=== PATIENT | female | born 1945 | race Caucasian/White ===

== ENCOUNTER 2019-04-15 11:00 | Outpatient (RCR) | payer MEDICARE, OTHER, SELFPAY ==
[2019-04-15 10:53] VITALS: BMI 29.7
== END 2019-06-23 23:59 | disposition home or self-care (01) ==
LOC: ANHDMC 11:00
PROVIDERS: PCP Family Medicine; Visit Provider Family Medicine
DX: E11.65 Type 2 diabetes mellitus with hyperglycemia (principal); Z71.3 Dietary counseling and surveillance; Z71.89 Other specified counseling
CPT/HCPCS: 97802; G0108

== ENCOUNTER 2019-05-27 07:44 | Outpatient (CLI) | payer MEDICARE, OTHER, SELFPAY ==
--- NOTE | 2019-06-18 15:07 | SLEEP_ITS ---
DATE OF STUDY: 05/27/2019 ORDERING PHYSICIAN: Romero Herring M.D. REASON FOR THIS STUDY: History of sleep apnea on CPAP, needs a retitration. HISTORY: This patient is a 74-year-old female, 62 inches tall, weighing 168 pounds with a body mass index of 30.7. She has used CPAP for over 20 years and says that it has changed her life. However, it is time for a retitration. She does frequently snore loudly that others complain about it when she is not wearing her CPAP. She frequently wakes up at night with heartburn belching. She does not have trouble sleeping with a cold, does not gasp for breath at night and does not have breathing problems at night witnessed by others. She does not sweat excessively at night. She occasionally falls asleep during the day rarely involuntarily, never while driving. She does not have loss of muscle tone with strong emotion, does not have daytime difficulties due to excessive sleepiness and does not feel paralyzed on waking or falling asleep. She is never afraid to go to sleep. She denies nightmares. She does not remember dreams. She frequently has racing thoughts. She never feels sad or depressed. She occasionally has anxiety. She constantly has muscular tension. She rarely notices parts of her body jerking. She does not kick at night, does not have crawly achy feelings in the legs or have leg pain at night. She constantly has morning jaw pain and constantly grinds her teeth. She frequently is bothered by pain during the day in her jaw. She is not awakened by pain during the night. She frequently wakes up feeling stiff in the morning with sore achy muscles, occasionally with pain in the neck and spine. She has fatigue and bowel disturbances. Bedtime is 08:30 p.m. falling asleep quickly, waking 2-4 times at night to go to the bathroom and sometimes to watch television. She wakes up in the morning between 04:00 and 5:00 a.m. Weekend schedule is the same. She does not take naps. A short nap is not refreshing. She feels better in the morning than at other times of day. PAST MEDICAL HISTORY: Diabetes, hypertension, and hypothyroidism. MEDICAL COMORBIDITIES: 1. TMJ arthropathy. 2. Obstructive sleep apnea syndrome with a study in 2006 showing an optimal pressure of 7 cm of water pressure. On November 21, 2008, she had a repeat CPAP titration showing at optimal pressure of 14 cm with correction of respiratory events. She did not have bruxism at that time. MEDICATIONS: Tradjenta, levothyroxine, glipizide, Bystolic, lisinopril, metformin, and Steglatro. HABITS: Never smoked tobacco. Coffee 1 cup in the morning. No alcohol. DESCRIPTION OF THE STUDY: On the [place] Sleepiness Scale, the score is 2. This was conducted as a full night CPAP titration using the [employer] multiple channel system including EOG, EEG, submental EMG, EKG, nasal and oral airflow using thermistors and nasal pressure sensors, chest and abdominal belts, body position data and pulse oximetry. The study was scored using [facility] guidelines. The duration of the study was 479.8 minutes. Sleep efficiency was 87.3%. Sleep latency was short at 0 minutes. REM latency was prolonged 253 minutes. There were 24 awakenings and the patient spent 12.7% of the study, 60.1 minutes awake after sleep onset. Sleep architecture showed 7.1% stage 1 sleep, 61.7% stage 2 sleep, no stage 3 sleep and 18.6% stage REM. The patient spent only 1.6% of the study supine. The remainder was non-supine. Sleep architecture was abnormal with 3 REM cycles in the last half of the night. The sleep was somewhat fragmented, especially in the first half with shifts between wake stage I and stage II. The apnea-hypopnea index was 1.4. The obstructive index was 1.3. Central index 0.1. Unfortunately, there was no supine REM. The patient
== END 2019-05-27 07:45 | disposition home or self-care (01) ==
LOC: ANHCSM 07:44
PROVIDERS: PCP Family Medicine; Visit Provider Family Medicine
DX: G47.33 Obstructive sleep apnea (adult) (pediatric) (principal)
CPT/HCPCS: 95811

== ENCOUNTER 2019-12-14 08:34 | Outpatient (CLI) | payer MEDICARE, OTHER, SELFPAY ==
--- NOTE | ~2019-12-14 | NM_ITS ---
EXAMINATION: NM octavio stress w perfusion DATE: 12/14/2019 13:12 CDT INDICATION: Chest pain TECHNIQUE: Rest images were obtained following intravenous administration of 9 mCi Tc99m tetrofosmin (Myoview). The patient was infused intravenously with Lexiscan (regadenoson). Then, 29 mCi Tc99m tetr ofosmin (Myoview) was administered intravenously, and stress images were obtained. Data was reconstru cted into short axis and horizontal and vertical long axis SPECT images. Gated SPECT images were also obtained. COMPARISON: None. FINDINGS: There is no definite reversible or fixed perfusion abnormality to suggest ischemia or infar ction. There is no segmental wall motion abnormality. Left ventricular ejection fraction measures 7 7%. IMPRESSION: 1. No definite ischemia or infarct. 2. Normal left ventricular ejection fraction measuring 77%. Reviewed, dictated and finalized at location A.
--- NOTE | 2019-12-14 08:40 | ECHO_ITS ---
Patient Info Name: Giovanna Hercules Age: 74 years : 1945 Gender: Female Ht: 64 in Wt: 162 lbs BSA: 1.84 m2 HR: 71 bpm BP: 195 / 88 mmHg Heart Rhythm: Sinus Rhythm Technical Quality: Good Exam Date: 12/14/2019 9:03 AM Exam Location: [facility] Patient Status: Outpatient Admit Date: 12/14/2019 Staff Ordering Physician: Ann Carolina Vehicle Body Builder: Félix Rdz RDCS Attending Provider: Ann Carolina Referring Physician: Caity PATEL; Exam Type: CA echo doppler color flow Study Info Indications R07.9 - Chest pain, unspecified Complete two-dimensional, color flow and Doppler transthoracic echocardiogram is performed. Strain analysis performed. History/Risk Factors Chest pain. Summary 1. Complete two-dimensional, color flow and Doppler transthoracic echocardiogram is performed. 2. Left ventricular chamber dimension is normal. 3. Ventricular septum is sigmoid shaped. No LVOT obstruction. 4. Left ventricular systolic function is hyperdynamic, estimated at >70%. 5. There is mildly increased left ventricular wall thickness. 6. The left ventricular diastolic function is grade I diastolic dysfunction. 7. E/e' 13 is mildly elevated. 8. Global longitudinal strain is normal at -17.4%. 9. There is mild aortic valve sclerosis. 10. No pulmonary hypertension, estimated pulmonary arterial systolic pressure is 32 mmHg. Left Ventricle Ventricular septum is sigmoid shaped. No LVOT obstruction. E/e' 13 is mildly elevated. Global longitudinal strain is normal at -17.4%. Left ventricular chamber dimension is normal. Left ventricular systolic function is hyperdynamic, estimated at >70%. There is mildly increased left ventricular wall thickness. The left ventricular diastolic function is grade I diastolic dysfunction. Right Ventricle Right ventricular chamber dimension is normal. Right ventricular systolic function is normal. Left Atria Left atrial chamber dimension is normal. Right Atria Right atrial chamber dimension is normal. Aortic Valve The aortic valve is trileaflet. There is mild aortic valve sclerosis. There is no aortic valve stenosis. There is no aortic valve regurgitation. Pulmonic Valve There is no pulmonic regurgitation. Mitral Valve There is no mitral valve stenosis. There is no mitral valve regurgitation. Tricuspid Valve There is no tricuspid valve regurgitation. No pulmonary hypertension, estimated pulmonary arterial systolic pressure is 32 mmHg. Pericardium/Pleural There is no pericardial effusion. Inferior Vena Cava Normal inferior vena cava with >50% collapse upon inspiration consistent with normal right atrial pressure, 5 mmHg. Aorta The aortic root size at the sinus of Valsalva is normal. Left Ventricular Outflow Tract Name Value Normal LVOT 2D LVOT Diameter 2.0 cm LVOT Doppler LVOT Peak Gradient 4 mmHg LVOT Mean Gradient 2 mmHg LVOT VTI 20 cm LVOT VTI/AV VTI Ratio 0.7 LVOT Stroke Volume
--- NOTE | 2019-12-14 08:40 | EST_ITS ---
Patient Info Name: Giovanna Hercules Age: 74 years : 1945 Gender: Female Ht: 64 in Wt: 162 lbs BSA: 1.84 m2 Exam Date: 12/14/2019 11:23 AM Exam Location: [facility] [place] Stress Patient Status: Outpatient Admit Date: 12/14/2019 Staff Ordering Physician: Ann Carolina Attending Provider: Ann Carolina Exercise Technologist: Faye Valdovinos RDCS Exercise Physician: Alvaro Simon DO Exam Type: CA stress octavio w NM Study Info Indications R07.9 - Chest pain, unspecified A regadenoson stress test was performed. Summary 1. 1. Negative lexiscan stress test for ischemic ST changes by ECG criteria. 2. 2. Baseline hypertension. 3. 3. Nuclear scan to follow and will be reported separately. Please correlat with it. 4. 4. Patient informed of the above results. Protocol: Lexiscan Stress ECG Details Stage: REST Duration (min): 5 min : 50 sec HR (bpm): 68 SBP (mmHg): --- DBP (mmHg): --- Stage: REST Duration (min): 7 min : 46 sec HR (bpm): 66 SBP (mmHg): 208 DBP (mmHg): 92 Stage: REST Duration (min): 21 min : 44 sec HR (bpm): 66 SBP (mmHg): 208 DBP (mmHg): 92 Stage: STAGE 1 Duration (min): 1 min : 0 sec HR (bpm): 79 SBP (mmHg): 203 DBP (mmHg): 107 Stage: RECOVERY Duration (min): 1 min : 0 sec HR (bpm): 81 SBP (mmHg): 167 DBP (mmHg): 82 Stage: RECOVERY Duration (min): 2 min : 0 sec HR (bpm): 74 SBP (mmHg): 167 DBP (mmHg): 82 Stage: RECOVERY Duration (min): 3 min : 0 sec HR (bpm): 71 SBP (mmHg): 168 DBP (mmHg): 82 Stage: RECOVERY Duration (min): 4 min : 0 sec HR (bpm): 76 SBP (mmHg): 168 DBP (mmHg): 82 Stage: RECOVERY Duration (min): 5 min : 0 sec HR (bpm): 78 SBP (mmHg): 169 DBP (mmHg): 86 Rest HR: 66 bpm Peak HR: 85 bpm Rest Sys BP: 208 mmHg Peak Sys BP: 203 mmHg Max Pred HR: 147 bpm % Max Pred HR: 58 % Target HR: 125 bpm Max RPP: 17,255 bpm*mmHg Termination Reason: Completed protocol Cardiac Symptoms: Shortness of breath, Headache Total Time: 1 min : 0 sec Rest Espinoza BP: 92 mmHg Peak Espinoza BP: 107 mmHg Total Dose: 0.4 mg Resting ECG Sinus rhythm, RBBB. Stress ECG No ST changes. Arrhythmias None. Report Signatures
== END 2019-12-14 08:35 | disposition home or self-care (01) ==
PROVIDERS: PCP Family Medicine; Visit Provider Physician Assistant Medical
DX: I45.10 Unspecified right bundle-branch block (principal); R07.9 Chest pain, unspecified
CPT/HCPCS: 78452; 93017; 93306; A9502; J2785

== ENCOUNTER 2019-12-15 09:32 | Outpatient (CLI) | payer MEDICARE, OTHER, SELFPAY ==
--- NOTE | ~2019-12-15 | MR_ITS ---
EXAMINATION: MR brain IAC wo/w con EXAM DATE: 12/15/2019 12:30 INDICATION: Amnesia. TECHNIQUE: Multi-sequential, multiplanar MR images of the brain, brainstem, internal auditory canals were obtained without contrast. Whole brain sagittal T1, axial diffusion, gradient echo (T2*), T1, T 2, FLAIR sequences obtained. High resolution coronal 3-D FIESTA, coronal T1 FSE, axial T1 FSPGR of t he internal auditory canals. Patient was then injected with Multihance contrast intravenously, quanti ty not available at this time. Postcontrast axial and coronal T1 weighted whole brain, axial and cor onal high resolution T1 IAC sequences obtained. There is no prior study for comparison. FINDINGS: No evidence of mastoid or middle ear opacification. The 7th/8th cranial nerve complexes a re symmetric, normal in course and caliber. No cerebellopontine angle masses. There is small to moderate size old right cerebellar infarction. Small old right occipital lobe infar ction. There are no areas of restricted diffusion to suggest acute infarction. There is no acute hem orrhage seen on the T2*, a hemosiderin sensitive sequence. No intraparenchymal brain mass lesion. Th ere is mild periventricular and subcortical T2/FLAIR signal hyperintensity, nonspecific but probably related to small vessel ischemic disease (microangiopathy). There is mild prominence of the sulci a nd ventricles related to cerebral atrophy. There are no extra-axial collections. Flow voids are se en in the cerebral arteries on the T2-weighted sequences consistent with their expected patency. Jennifer ient has had bilateral ocular lens surgery. Soft tissue is unremarkable. IMPRESSION: 1. 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 2. Chronic age related findings. Reviewed, dictated and finalized at location B. IMPRESSION: 1. Small to moderate old right cerebellar, small old right occipital lobe infa rctions. 2. Chronic age related findings.
[2019-12-15 11:40] LABS: Estimated Glomerular Filt Rate > 60
== END 2019-12-15 09:33 | disposition home or self-care (01) ==
LOC: ANHIMG 09:37
PROVIDERS: PCP Family Medicine; Visit Provider Physician Assistant Medical
DX: R41.3 Other amnesia (principal); Z86.73 Personal history of transient ischemic attack (TIA), and cerebral infarction without residual deficits
CPT/HCPCS: 70553; A9577

== ENCOUNTER 2020-02-25 11:34 | Outpatient (RCR) | payer MEDICARE, OTHER, SELFPAY | END 2020-02-25 13:46 | disposition home or self-care (01) | LOC: ANHDMC 11:34 | PROVIDERS: PCP Family Medicine; Visit Provider Family Medicine | DX: E11.65 Type 2 diabetes mellitus with hyperglycemia (principal); Z71.89 Other specified counseling | CPT/HCPCS: G0108 ==

== ENCOUNTER 2020-08-01 07:41 | Outpatient (CLI) | payer MEDICARE, OTHER, SELFPAY ==
--- NOTE | ~2020-08-01 | US_ITS ---
EXAMINATION: US art doppler w press LE BI DATE: 08/01/2020 08:56 INDICATION: Peripheral vascular disease. TECHNIQUE: Segmental pressures and plethysmographic and Doppler waveforms of the brachial and lower e xtremity arteries were obtained. COMPARISON: None. FINDINGS: Right and left brachial artery pressures of 161 mm Hg and 150 mm Hg, respectively, are concordant (no rmal difference <= 30 mmHg). The right and left high-thigh pressure were unable to be obtained due to inability to occlude the vessels above the ankles. This also precludes assessment for segmental pres sure gradients. The right ankle-brachial index (ARMIDA) is 1.12 (normal >= 0.9-1). The right great toe-brachial index (T BI) is 0.80 (normal >= 0.6-0.8). Arterial waveforms are biphasic with brisk systolic upstrokes throug hout. The left ARMIDA is 1.12. The left TBI is 0.74. Arterial waveforms are biphasic with brisk systolic upstr okes throughout. IMPRESSION: 1. Normal ARMIDA's and TBI's bilaterally. No significant occlusive disease. Reviewed, dictated and finalized at location A.
== END 2020-08-01 07:42 | disposition home or self-care (01) ==
PROVIDERS: PCP Family Medicine; Visit Provider Family Medicine
DX: I73.9 Peripheral vascular disease, unspecified (principal)
CPT/HCPCS: 93923

== ENCOUNTER 2020-08-24 07:30 | Outpatient (RCR) | payer MEDICARE, OTHER, SELFPAY ==
[2020-06-02 09:16] VITALS: PULSE 65
[2020-06-05 14:47] LABS: Glucose Point of Care 158 (65-105)
[2020-06-05 14:47] LABS: Glucose Point of Care 180 (65-105)
[2020-06-08 08:52] LABS: Glucose Point of Care 116 (65-105)
[2020-06-12 12:30] LABS: Glucose Point of Care 216 (65-105)
[2020-06-14 07:50] LABS: Glucose Point of Care 168 (65-105)
[2020-06-14 08:47] LABS: Glucose Point of Care 160 (65-105)
[2020-06-19 08:43] LABS: Glucose Point of Care 197 (65-105)
[2020-06-19 08:43] LABS: Glucose Point of Care 201 (65-105)
--- NOTE | 2020-06-26 11:20 | PCCPR ---
Absent WED 06/28 and 06/29-Family emergency OOT.
[2020-07-03 11:40] LABS: Glucose Point of Care 148 (65-105)
[2020-07-05 08:46] LABS: Glucose Point of Care 266 (65-105)
[2020-07-05 08:46] LABS: Glucose Point of Care 207 (65-105)
[2020-07-06 09:04] LABS: Glucose Point of Care 194 (65-105)
[2020-07-06 09:04] LABS: Glucose Point of Care 183 (65-105)
[2020-07-10 08:39] LABS: Glucose Point of Care 229 (65-105)
[2020-07-19 08:42] LABS: Glucose Point of Care 237 (65-105)
[2020-07-24 08:44] LABS: Glucose Point of Care 94 (65-105)
[2020-07-26 07:47] LABS: Glucose Point of Care 202 (65-105)
[2020-07-26 08:38] LABS: Glucose Point of Care 170 (65-105)
[2020-07-31 08:47] LABS: Glucose Point of Care 224 (65-105)
[2020-08-02 08:42] LABS: Glucose Point of Care 162 (65-105)
[2020-08-03 09:10] LABS: Glucose Point of Care 110 (65-105)
[2020-08-07 08:37] LABS: Glucose Point of Care 99 (65-105)
== END 2020-08-24 19:30 | disposition home or self-care (01) ==
LOC: ANHCPREHAB 07:30
PROVIDERS: PCP Family Medicine
DX: Z95.5 Presence of coronary angioplasty implant and graft (principal)
CPT/HCPCS: 82948; 93798

== ENCOUNTER 2020-11-07 14:01 | Outpatient (RCR) | payer MEDICARE, OTHER, SELFPAY | END 2021-01-22 11:37 | disposition home or self-care (01) | LOC: ANHDMC 14:01 | PROVIDERS: PCP Family Medicine; Visit Provider Internal Medicine Endocrinology, Diabetes & Metabolism | DX: E11.9 Type 2 diabetes mellitus without complications (principal); Z71.89 Other specified counseling | CPT/HCPCS: G0108 ==

== ENCOUNTER → 2021-03-12 09:46 | Outpatient (CLI) | payer MEDICARE, OTHER, SELFPAY ==
[2021-03-14 19:37] LABS: SARS-CoV-2 RNA PCR Positive
== END ==
PROVIDERS: PCP Family Medicine; Visit Provider Physician Assistant Medical
DX: U07.1 COVID-19 (principal)
CPT/HCPCS: C9803; U0003; U0005

== ENCOUNTER 2021-04-26 15:34 | Emergency (ER) | payer MEDICARE, OTHER, SELFPAY ==
--- NOTE | ~2021-04-26 | XR_ITS ---
EXAMINATION: XR forearm LT 2V EXAM DATE: 04/26/2021 16:48 INDICATION: Fell out of bed, mid forearm, wrist pain. TECHNIQUE: Left forearm frontal and lateral projections obtained and reviewed. There is no prior dimas dy for comparison. FINDINGS: There are no acute left forearm fractures or dislocations identified. There is no subcutan eous gas. The soft tissue is unremarkable. There are no radiopaque foreign bodies. IMPRESSION: 1. XR forearm LT 2V exam without acute osseous findings. Reviewed, dictated and finalized at location G. POLISHER
--- NOTE | ~2021-04-26 | XR_ITS ---
EXAMINATION: XR wrist LT min 3V EXAM DATE: 04/26/2021 15:53 INDICATION: Fall Off Bed 2 Days Ago. Bruising Post Hand, Pain Post wrist. TECHNIQUE: Left wrist frontal, frontal with ulnar deviation, oblique and lateral projections obtained and reviewed. There is no prior study for comparison. FINDINGS: Left wrist scapholunate joint space is maintained. There are no acute fractures or dislocat ions identified. There is no subcutaneous gas. The soft tissue is unremarkable. There are no radi opaque foreign bodies. IMPRESSION: No acute osseous findings. Reviewed, dictated and finalized at location G. APPLICATION ARCHITECT IMPRESSION: No acute osseous findings.
[2021-04-26 15:36] VITALS: BP 184/88; PULSE 88; RESP 20; TEMP 36.7; O2SAT 96
--- NOTE | 2021-04-26 16:32 | ED.GENADULT ---
HPI - General Adult General Chief complaint: Extremity Injury, Upper Stated complaint: fall 2 days prior, left arm pain Time Seen by Provider: 04/26/21 15:46 Source: patient Mode of arrival: ambulatory Limitations: no limitations History of Present Illness HPI narrative: Patient is a 76 yo female with CC of left wrist and forearm pain and bruising after rolling out of the bed on Friday. She reports the bed was less approx 1 ft off the ground and she did not hit her head or lose consciousness. She reports she put out her left arm to brace her fall. She denies any headache, or neurological changes. She reports swelling and bruising to the left wrist and thumb that decreases some of ROM. She also reports pain to proximal forearm. She reports she is on anticoagulant. Patient reports she was able to get herself up and was not laying on the floor for an extended period of time. Patient denies any other areas of injury or concern. Related Data Home Medications Medication Instructions Recorded Confirmed cholecalciferol (vitamin D3) 100 4,000 unit PO DAILY 03/29/19 12/05/20 mcg (4,000 unit) tablet ascorbic acid (vitamin C) 500 mg 500 mg PO DAILY 04/10/20 12/05/20 capsule aspirin 81 mg tablet,delayed 81 mg PO DAILY 05/04/20 12/05/20 release isosorbide mononitrate 30 mg 30 mg PO DAILY tablet 07/13/20 12/05/20 tablet,extended release 24 hr Allergies Allergy/AdvReac Type Severity Reaction Status Date / Time codeine Allergy Mild Vomiting Verified 04/26/21 15:41 Penicillins Allergy Mild rash Verified 04/26/21 15:41 cefuroxime Allergy Unknown Unknown Verified 04/26/21 15:41 Review of Systems Review of Systems: CONSTITUTIONAL: Denies fever, chills, or sweats. EYES: Denies visual changes, redness, or discharge. ENT: Denies rhinorrhea, congestion, sore throat, or otalgia. CARDIOVASCULAR: Denies chest pain, palpitations, or edema. RESPIRATORY: Denies cough or dyspnea. GASTROINTESTINAL: Denies abdominal pain, nausea, vomiting, or diarrhea. GENITOURINARY: Denies dysuria or hematuria. SKIN: Denies rash or itching. MUSCULOSKELETAL: Reports left arm pain denies back pain, joint pain, or myalgia. NEUROLOGIC: Denies headache, numbness, dizziness, or weakness. PSYCHIATRIC: Denies anxiety or depression. [facility] Past Medical History Medical History Anemia Bilateral claudication of lower limb BMI 28.0-28.9,adult BMI 29.0-29.9,adult BMI 30.0-30.9,adult BMI 31.0-31.9,adult Cancer Cataract Chest pain Diabetes mellitus H/O: HTN (hypertension) Liver disease Stroke Thyroid disease Transplanted kidney removed Surgical History Surgical History H/O cardiac catheterization H/O: hysterectomy Hx of heart artery stent Family History Family History Grandparent Family history of coronary artery disease Acute myocardial infarction Mother Family history of malignant neoplasm of breast in first degree relative Father , shot in back. No problems noted. Sibling Pacemaker Social History Social History Second hand tobacco smoke exposure: Yes Alcohol intake: never Substance use: never Substance use type: does not use Additional living arrangements comments: She lives with her Eb. 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 HEAD: Normocephalic, atraumatic. No hematomas, lacerations, abrasions or areas of injury. EYES: PERRLA and EOMI. ENT: Nares clear, no rhinorrhea or epistaxis. Mucous membranes moist. Oropharynx without tonsillar hypertrophy exudate or other lesions.
[2021-04-26 17:35] VITALS: BP 152/79; PULSE 68; RESP 18; O2SAT 99
== END 2021-04-26 17:39 | disposition home or self-care (01) ==
PROVIDERS: Emergency Provider Emergency Medicine; PCP Family Medicine
DX: S63.502A Unspecified sprain of left wrist, initial encounter (principal); S66.912A Strain of unspecified muscle, fascia and tendon at wrist and hand level, left hand, initial encounter; S60.212A Contusion of left wrist, initial encounter; E11.9 Type 2 diabetes mellitus without complications; I10 Essential (primary) hypertension; E07.9 Disorder of thyroid, unspecified; K76.9 Liver disease, unspecified; Z86.73 Personal history of transient ischemic attack (TIA), and cerebral infarction without residual deficits; Z86.2 Personal history of diseases of the blood and blood-forming organs and certain disorders involving the immune mechanism; Z79.82 Long term (current) use of aspirin; Z95.5 Presence of coronary angioplasty implant and graft; H26.9 Unspecified cataract; Z77.22 Contact with and (suspected) exposure to environmental tobacco smoke (acute) (chronic); Z79.84 Long term (current) use of oral hypoglycemic drugs; Z79.4 Long term (current) use of insulin; Z79.02 Long term (current) use of antithrombotics/antiplatelets; W06.XXXA Fall from bed, initial encounter
CPT/HCPCS: 73090; 73110; 99283

== ENCOUNTER 2022-02-25 09:15 | Outpatient (RCR) | payer MEDICARE, OTHER, SELFPAY ==
[2022-02-12 10:47] VITALS: BMI 32.4
[2022-02-12 10:48] VITALS: BMI 32.4
== END 2022-02-25 14:53 | disposition home or self-care (01) ==
LOC: ANHDMC 09:15
PROVIDERS: PCP Family Medicine; Visit Provider Nurse Practitioner Family
DX: E11.9 Type 2 diabetes mellitus without complications (principal); Z71.3 Dietary counseling and surveillance; Z71.89 Other specified counseling
CPT/HCPCS: 97802; G0108

== ENCOUNTER 2024-01-09 12:12 | Emergency (ER) | payer MEDICARE, OTHER, SELFPAY ==
--- NOTE | ~2024-01-09 | XR_ITS ---
[id number] 01/09/2024 13:09 Indication: Left medial knee pain Procedure: 2 views left knee Comparison: No prior studies for comparison. Findings: There is mild patellofemoral compartment osteoarthritis. No fracture, subluxation or joint effusion. No foreign bodies. Impression: 1: Mild patellofemoral compartment osteoarthritis. Reviewed, dictated and finalized at location B. Impression: 1: Mild patellofemoral compartment osteoarthritis.
[2024-01-09 12:28] VITALS: BP 123/59; PULSE 84; RESP 16; TEMP 36.5; O2SAT 98
[2024-01-09 12:32] VITALS: BP 123/59; PULSE 84; RESP 16; TEMP 36.5; O2SAT 98
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
== END 2024-01-09 13:41 | disposition home or self-care (01) ==
PROVIDERS: Emergency Provider Nurse Practitioner; PCP Family Medicine
DX: M25.562 Pain in left knee (principal); I25.10 Atherosclerotic heart disease of native coronary artery without angina pectoris; I12.9 Hypertensive chronic kidney disease with stage 1 through stage 4 chronic kidney disease, or unspecified chronic kidney disease; E11.22 Type 2 diabetes mellitus with diabetic chronic kidney disease; N18.30 Chronic kidney disease, stage 3 unspecified; E78.2 Mixed hyperlipidemia; E03.9 Hypothyroidism, unspecified; Z79.899 Other long term (current) drug therapy; Z79.82 Long term (current) use of aspirin; Z86.73 Personal history of transient ischemic attack (TIA), and cerebral infarction without residual deficits; Z85.528 Personal history of other malignant neoplasm of kidney
CPT/HCPCS: 73560; 99213; G0463

== ENCOUNTER 2024-01-23 11:00 | Outpatient (CLI) | payer MEDICARE, OTHER, SELFPAY ==
--- NOTE | ~2024-01-23 | MR_ITS ---
EXAMINATION: MR knee LT wo con DATE: 01/23/2024 11:57 INDICATION: Left knee pain TECHNIQUE: Magnetic resonance imaging (MRI) of the left knee was performed without intravenous contra st. Sequences included coronal PD-weighted FSE, coronal PD-weighted FS FSE, sagittal T2-weighted FSE , sagittal PD-weighted FS FSE and axial PD weighted fat saturated FSE. COMPARISON: None. FINDINGS: Medial compartment: Complex tear at the body and posterior horn of the medial meniscus. Mild partial-thickness cartilage loss along the posterior aspect of the medial tibial plateau with mild subarticular edema-like signal change likely posterior medial rim which could be due to overlying chondromalacia or altered stress distribution resulting from the meniscal tear. Lateral compartment: Partially discoid lateral meniscus without tear. Mild partial-thickness cartilage loss with smooth ch ondral surface along the lateral side of the posterior weightbearing lateral femoral condyle. Patellofemoral compartment: Deep chondral ulceration with mild subarticular cystlike changes at the cephalad aspect of the patell a involving the apical ridge and immediately adjacent portions of the medial and lateral facets. Troc hlear cartilage is normal. Ligaments and tendons: Anterior and posterior cruciate ligaments are normal. The medial collateral ligament and fibular susan ateral ligament complex are normal. The extensor mechanism is normal. The visualized medial and later al hamstring tendons as well as the iliotibial band are normal. Fluid: Small left knee joint effusion at the suprapatellar pouch. No loose osteochondral bodies identified. Small Porras's cyst. Osseous/other: Bone alignment is normal. No fracture or pathologic marrow replacing process. IMPRESSION: 1. Complex medial meniscal tear. 2. Mild tricompartmental osteoarthritis most prominent in the patellofemoral compartment where there is high-grade patellar chondromalacia. 3. Likely reactive small left knee joint effusion and small Porras's cyst. Reviewed, dictated and finalized at location A. IMPRESSION: 1. Complex medial meniscal tear. 2. Mild tricompartmental osteoarthritis most prominent in the patellofemoral co mpartment where there is high-grade patellar chondromalacia. 3. Likely reactive small left knee joint effusion and small Porras's cyst.
== END 2024-01-23 11:01 | disposition home or self-care (01) ==
LOC: GOSHIMG 11:02
PROVIDERS: PCP Orthopaedic Surgery; Visit Provider Orthopaedic Surgery
DX: S83.232A Complex tear of medial meniscus, current injury, left knee, initial encounter (principal); X58.XXXA Exposure to other specified factors, initial encounter; M17.12 Unilateral primary osteoarthritis, left knee; M25.462 Effusion, left knee; M71.22 Synovial cyst of popliteal space [Baker], left knee
CPT/HCPCS: 73721

== ENCOUNTER 2024-02-03 07:59 | Outpatient (CLI) | payer MEDICARE, OTHER, SELFPAY ==
--- NOTE | 2024-02-03 08:30 | ECG_ITS ---
Test Date: 2024-02-03 08:24:29 Measurements Intervals [place] Rate: 76 P: 65 MD: 209 QRS: -77 QRSD: 140 T: 28 QT: 423 QTc: 477 Interpretive Statements SINUS RHYTHM WITH OCCASIONAL VENTRICULAR PREMATURE COMPLEXES LEFT AXIS DEVIATION RIGHT BUNDLE BRANCH BLOCK CONSIDER ANTERIOR INFARCT, AGE INDETERMINATE INFERIOR INFARCT, AGE INDETERMINATE BASELINE ARTIFACT- I, II, III, AVR, AVL, AVF, V1-V6 ABNORMAL ECG No previous ECG available for comparison Electronically Signed On 02-03-2024 08:32:14 EDGE [employer]UGGER by Alvaro Simon D.O.
[2024-02-03 08:54] LABS: Partial Thromboplastin Time 27.4 Seconds (22.3-36.8); Prothrombin Time 13.5 Seconds (11.1-14.7)
[2024-02-03 09:00] LABS: Anion Gap 9 mmol/L (4-12); Blood Urea Nitrogen 22 mg/dL (7-17); Calcium 9.3 mg/dL (8.4-10.2); Carbon Dioxide 25 mmol/L (22-30); Chloride 105 mmol/L (98-107); Estimated Glomerular Filt Rate > 60; Glucose 175 mg/dL (65-110); Potassium 4.5 mmol/L (3.4-5.0); Sodium 139 mmol/L (137-145)
== END 2024-02-03 08:00 | disposition home or self-care (01) ==
PROVIDERS: Anesthesiology; PCP Family Medicine; Visit Provider Orthopaedic Surgery
DX: Z01.818 Encounter for other preprocedural examination (principal); I12.9 Hypertensive chronic kidney disease with stage 1 through stage 4 chronic kidney disease, or unspecified chronic kidney disease; N18.30 Chronic kidney disease, stage 3 unspecified; E11.22 Type 2 diabetes mellitus with diabetic chronic kidney disease
CPT/HCPCS: 36415; 80048; 85610; 85730; 93005

== ENCOUNTER 2024-02-09 00:19 | Day surgery (SDC) | payer MEDICARE, OTHER, SELFPAY ==
[2024-02-02 15:34] VITALS: BMI 30.6
--- NOTE | 2024-02-02 16:04 | PC.NURSE ---
Report to the Outpatient Waiting Room, entrance under the green pavilion located off [facility], at time ____8:00AM___ on date ___02/09/24____. Planned Procedure Time: ___10:00AM .? Time changes happen often and if your time is changed the preop area will call you the afternoon before. - You and your visitor will be asked to self-screen and do not enter if you have any COVID symptoms. Please call surgeon if you need to reschedule. - A mask is optional within the hospital at this time. Patients may have clear liquids (water, carbonated beverages, clear teas, apple juice) until 3 hours prior to surgery with a maximum of 20 ounces. - No food from midnight until time of surgery and no smoking. Take only the following medications with a SIP of water on the morning of surgery: ___AMLODIPINE, METOPROLOL, SYNTHROID DO NOT STOP ANY OF YOUR OTHER PRESCRIPTION MEDICATIONS PRIOR TO SURGERY EXCEPT THE FOLLOWING Medications to discontinue per physician ___HOLD ASPIRIN & PLAVIX PER DR WINN. (PATIENT IS CALLING OFFICE TO CONFIRM.) HOLD ALL VITAMINS/SUPPLEMENTS 3 DAYS PRE-OP PER ANESTHESIA- LAST DOSE 02/05/24. Please no make-up, nail turkish, hairspray, perfume, deodorant, or body powder the day of surgery.? No jewelry (including any body piercings) or valuables the day of surgery, leave them at home.? Please take a shower or bath the night before, or the morning of, surgery with an antibacterial soap.? Wear comfortable, loose fitting clothing.? - Jewelry must be removed prior to entering the operating room.? Rings and piercings that are not removed may be cut off. - The hospital will not accept responsibility for valuables.? - Please leave all valuables, including medications, at home the day of surgery. If you are going home after surgery, a licensed dray truck driver must drive you home.? - NO public transportation without another adult if you receive anesthesia. - We recommend that an adult stay with you for 24 hours following discharge. - We also recommend that you do not drive, make important decision, drink alcoholic beverages, or take any drugs that were not prescribed by your health care provider for at least 24 hours after your discharge time. Follow any additional instructions given to you from your surgeon. Telephone instructions given to ____PATIENT and asked if any additional questions and then verbalized understanding. Patient advised to call surgeon office or pre surgery nurse liaison [phone] if any additional questions.
[2024-02-09] VITALS (9 sets, daily range): BP systolic 92–149; BP diastolic 64–83; PULSE 72–86; RESP 12–17; TEMP 36.2–36.5; O2SAT 96–99
[2024-02-09] MEDS: ACETAMINOPHEN 500 MG TABLET 1000 MG PO (08:50)
[2024-02-09] MEDS: LACTATED RINGERS 1,000 ML 30 ML IV CONT (09:00)
[2024-02-09] MEDS: KETOROLAC 15 MG/ML VIAL (*BKC) IV PUSH (09:25)
[2024-02-09 09:28] LABS: Glucose Point of Care 185 mg/dl (65-105)
--- NOTE | 2024-02-09 09:48 | WPDHPUPDATE1 ---
History and Physical Update Update Date/Time: 02/09/24 09:48 History and Physical has been reviewed, including an updated exam of the patient. There are NO changes in the patient's condition. Risks, benefits, and alternatives have been discussed and questions answered. Patient agrees to proceed with procedure.
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
--- NOTE | 2024-02-09 09:53 | WPDHPUPDATE1 ---
History and Physical Update Update Date/Time: 02/09/24 09:53 History and Physical has been reviewed, including an updated exam of the patient. There are NO changes in the patient's condition. Risks, benefits, and alternatives have been discussed and questions answered. Patient agrees to proceed with procedure.
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
[2024-02-09] MEDS: ceFAZolin 2 GM/D5W 50 ML 2 GM/50 ML BAG IVPB (10:20)
[2024-02-09] MEDS: LIDO 1%/EPINEPHRINE 1:100,000 20 ML VIAL 30 ML INFILTRATE (10:59)
--- NOTE | 2024-02-09 11:01 | W.PM.PROC2 ---
Procedure Note - Detailed Date of Procedure 02/09/24 Pre-op Diagnosis Left medial meniscal tear Post-op Diagnosis Same Procedure Performed LEFT knee arthroscopy with partial meniscectomy Surgeon Joaquín Foster MD Anesthesia General Description of Procedure Patient brought to operating room # 8. An anesthetic was administered. The knee was sterilely prepped and draped in the usual manner. Standard portals were used. Superior medial portal was used for the outflow cannula, inferior lateral portal was used for the scope, inferior medial portal was used for the instruments. Arthroscopy was performed, the patellar femoral joint degenerative changes. The medial compartment showed a complex tear. The lateral compartment showed fraying. The ACL was intact. Using baskets and iliana the meniscal tear was trimmed back to a stable base so the nothing further could be pulled into the joint. Any loose or delaminated fragments were gently trimmed to a stable base. At this point the instruments were withdrawn, sutures placed and patient left the operating room in satisfactory condition. Estimated Blood Loss 20 Drains No Packing No Pathology None sent Complications No immediate complications Condition Stable Disposition PACU [facility] Billing Surgery - Charge Forward: Surgery Billing ([id number] Scope Partial Menis)
[2024-02-09 11:30] LABS: Glucose Point of Care 162 mg/dl (65-105)
--- NOTE | 2024-02-09 12:25 | SUR.PHASEII ---
MD Foster contacted regarding when patient can resume blood thinners post operatively. Pt states she held her Plavix for 3 days prior to procedure. Pt can resume Plavix today per MD Foster. Pt education provided.
== END 2024-02-09 13:39 | disposition home or self-care (01) ==
PROVIDERS: PCP Family Medicine; Visit Provider Orthopaedic Surgery
PROC: (CPT 29870; principal; 2024-02-09 10:00)
DX: S83.232A Complex tear of medial meniscus, current injury, left knee, initial encounter (principal); E11.9 Type 2 diabetes mellitus without complications; I12.9 Hypertensive chronic kidney disease with stage 1 through stage 4 chronic kidney disease, or unspecified chronic kidney disease; N18.30 Chronic kidney disease, stage 3 unspecified; E03.9 Hypothyroidism, unspecified; E78.2 Mixed hyperlipidemia; G47.33 Obstructive sleep apnea (adult) (pediatric); D64.9 Anemia, unspecified; E83.52 Hypercalcemia; I25.10 Atherosclerotic heart disease of native coronary artery without angina pectoris; X58.XXXA Exposure to other specified factors, initial encounter; E66.9 Obesity, unspecified; Z68.30 Body mass index [BMI] 30.0-30.9, adult; Z99.89 Dependence on other enabling machines and devices; Z79.82 Long term (current) use of aspirin; Z79.02 Long term (current) use of antithrombotics/antiplatelets; Z79.84 Long term (current) use of oral hypoglycemic drugs; Z79.85 Long-term (current) use of injectable non-insulin antidiabetic drugs; Z79.4 Long term (current) use of insulin; Z98.890 Other specified postprocedural states; Z95.5 Presence of coronary angioplasty implant and graft; Z85.51 Personal history of malignant neoplasm of bladder; Z85.528 Personal history of other malignant neoplasm of kidney; Z86.73 Personal history of transient ischemic attack (TIA), and cerebral infarction without residual deficits; Z80.3 Family history of malignant neoplasm of breast; Z82.49 Family history of ischemic heart disease and other diseases of the circulatory system
CPT/HCPCS: 29881; 82948; A9270; J0690; J1885; J2004; J2704; J3010; J7120

== ENCOUNTER 2024-10-01 11:15 | Emergency (ER) | payer MEDICARE, OTHER, SELFPAY ==
--- NOTE | ~2024-10-01 | XR_ITS ---
CHEST RADIOGRAPH, PA AND LATERAL CLINICAL HISTORY: chest pressure . COMPARISON: 02/05/2016 TECHNIQUE: PA and lateral views of the chest. FINDINGS The cardiomediastinal silhouette is unremarkable. The lungs are clear. IMPRESSION: No focal infiltrate or effusion. Reviewed, dictated and finalized at location A.
--- NOTE | 2024-10-01 11:16 | ECG_ITS ---
Test Date: 2024-10-01 11:20:23 Measurements Intervals [place] Rate: 78 P: 47 WA: 191 QRS: -80 QRSD: 141 T: 41 QT: 406 QTc: 462 Interpretive Statements SINUS RHYTHM RIGHT BUNDLE BRANCH BLOCK [120+ ms QRS DURATION, UPRIGHT V1, 40+ ms S IN I/aVL/V4/V5/V6] INFERIOR MYOCARDIAL INFARCTION , OF INDETERMINATE AGE [40+ ms Q WAVE AND/OR ST/T ABNORMALITY IN II/aVF] Electronically Signed On 10-01-2024 22:30:18 CDT by Martha Orosco M.D.
--- OUTSIDE RECORDS SUMMARY | 2024-10-01 11:17 | XMS_ITS ---
Author Organization [facility] Address [address] [place] [address] Care Team Providers Care Full Decator Operator Name Role Phone Romero Herring MD Primary Care Provider [phone] Romero Herring MD Unavailable [phone] Active Problems Problem Noted Date Diagnosed Date Diabetes mellitus Overview (03/10/2020): Diabetes Hypertension Overview (03/10/2020): Hypertension Sleep apnea HLD (hyperlipidemia) HL (hearing loss) Hypothyroidism Current Treatment and Therapy Plans No current plan information found. Past Treatment and Therapy Plans No past plan information found. Lifetime Dose Tracking * Chemical Lifetime Dose Automatic Entry Manual Entr y DLP 429 mGycm 429 mGycm 0 mGycm Resolved Problems Problem Noted Date Diagnosed Date Resolved Date Malignant neoplasm of urinary bladder 09/09/2019 03/10/2020 Overview (09/09/2019): Added automatically from request for surgery [id number]
--- OUTSIDE RECORDS SUMMARY | 2024-10-01 11:17 | XMS_ITS | Clinical Summary ---
Author Organization [facility] Address [address] [place] [address] Care Team Providers Care Paraprofessional Aide Teacher Name Role Phone Romero Herring MD Primary Care Provider [phone] Romero Herring MD Unavailable [phone] Allergies Active Allergy Reactions Criticality Noted Date Comments Codeine Other (See comments) Reaction: Nausea, vomiting, Penicillins Other (See comments) Reaction: Hives, Medications cholecalciferol (VITAMIN D3) 5,000 unit tablet take 2 po QD 0 0 6 Active Additional Information Patient taking differently: 10,000 Units oral Daily, Reported on 09/22/2019 glipiZIDE (GLUCOTROL) 10 mg tablet take 1 tablet by oral route every day before a meal 0 0 6 Active Additional Information Patient taking differently: 5 mg oral 2 times daily before meals (bkfst, lunch), Reported on 09/23/2019 aspirin 325 mg tablet take 1 tablet by oral route every day 0 0 6 Active Additional Information Patient taking differently:325 mgoral Nightly, Reported on 09/22/2019 metFORMIN (GLUCOPHAGE) 1,000 mg tablet take 1 tablet by oral route 2 times every day with morning and evening meals 0 0 6 Active Additional Information Patient not taking.Reported on 03/10/2020 lisinopril (PRINIVIL,ZESTRI L) 20 mg tablet take 1 tablet by oral route every day 0 0 6 Active Additional Information Patient taking differently:20 mgoral Nightly, Reported on 09/22/2019 levothyroxine (SYNTHROID, LEVOTHROID) 100 mcg tablet Take 100 mcg by mouth early childhood teacher before breakfast Active metoprolol XL (TOPROL-XL) 25 mg extended release tablet Take 25 mg by mouth daily Active Tresiba FlexTouch U-100 100 unit/mL (3 mL) insulin pen INJECT 30 UNITS SUB Q DAILY 0 Active rosuvastatin (CRESTOR) 40 mg tablet Take 40 mg by mouth daily 0 Active clopidogreL (PLAVIX) 75 mg tablet Take 75 mg by mouth daily 1 Active isosorbide mononitrate ER (IMDUR) 30 mg 24 hr tablet TAKE 1 TABLET BY MOUTH EVERYDAY AT BEDTIME [address] (PROTONIX) 20 mg EC tablet Take 20 mg by mouth every morning 1 Active tiZANidine (ZANAFLEX) 2 mg tablet 1 Active Active Problems Problem Noted Date Diagnosed Date Diabetes mellitus Overview (03/10/2020): Diabetes Hypertension Overview (03/10/2020): Hypertension Sleep apnea HLD (hyperlipidemia) HL (hearing loss) Hypothyroidism Resolved Problems Problem Noted Date Diagnosed Date Resolved Date Malignant neoplasm of urinary bladder 09/09/2019 03/10/2020 Overview (09/09/2019): Added automatically from request for surgery [id number] Surgical History Surgery Date Site/Laterality Comments OTHER SURGICAL HISTORY Knee arthscpy mnsctmy medial or lat HYSTERECTOMY partial KIDNEY SURGERY right Medical History Medical History Date Comments Disorder of thyroid Thyroid dise ase Kidney disorder Kidney Disease FH: kidney cancer Cerebrovascular accident (CVA) (HCC) 01/2011 Cerebrovascular accident Stroke (HCC) 01/2011 X2 right side re sidual Motion sickness Malignant neoplasm of kidney (HCC) Cancer, renal (right) Bladder cancer (HCC) Hypothyroidism Diabetes mellitus (HCC) Diabetes Hypertension Hypertension Hypertension Sleep apnea HLD (hyperlipidemia) HL (hearing loss) Family History Medical History Relation Name Comments No Known Problems Father Heart attack Maternal Grandfather Cancer Mother Cancer Other 1 Family history of Cancer; Heart disease Other 2 Family history of Heart disease; Blood Clot Paternal Grandfather Colon cancer Paternal Grandmother Alzheimer's disease Neg Hx Dementia Neg Hx Relation Name Status Comments Father Maternal Grandfather Mother Other 1 Other 2 Paternal Grandfather Paternal Grandmother Social History Tobacco Use Types Packs/Day Years Used Date Smoking Tobacco: Never Smokeless Tobacco: Never Alcohol Use Standard Drinks/Week Comments No 0 (1 standard drink = 0.6 oz pur e alcohol) Comments Unknown Sex and Gender Information Value Date Recorded Sex Assigned at Not on file Legal Sex Female 1:44 PM LINEN ROOM HOUSEPERSON Gender Identity Not on file Sexual Orientation Not on file Occupation Industry Job Start Date Job End Date Retired Not on file Not on file Not on file Obstetrics History Last Filed Vital Signs Vital Sign Reading Time Taken Comments Blood Pressure 163/83 02/28/2020 7:47 AM LINEN ROOM HOUSEPERSON Pulse 98 02/28/2020 7:47 AM LINEN ROOM HOUSEPERSON Temperature 36.1 C (96.9 F) 11/07/2020 9:40 AM CDT Respiratory Rate 16 09/23/2019 12:05 PM CDT Oxygen Saturation 94% 09/23/2019 12:05 PM CDT Inhaled Oxygen Concentration - - Weight 75.4 kg (166 lb 3.2 oz) 02/28/2020 7:47 A M LINEN ROOM HOUSEPERSON Height 162.6 cm (5' 4) 02/28/2020 7:47 AM LINEN ROOM HOUSEPERSON Body Mass Index 28.53 02/28/2020 7:47 AM LINEN ROOM HOUSEPERSON Plan of Treatment Health Maintenance Due Date Last Done Comments Albumin Creatinine Ratio, Urine 1946 Depression Screening 1946 Hemoglobin A1C 1946 Hepatitis C Screening 1946 Osteoporosis Screening-Bone Density Scan 1946 Dilated Eye Exam 1946 Foot Exam 1946 DTaP/Tdap/Td Vaccine (1 - Tdap) 1957 Hepatitis B Screening 1964 Pneumococcal vaccine 65+ (1 of 2 - PCV) 1965 Zoster Vaccine (1 of 2) 1996 Well Visit 65+ 2011 Lipid Panel 08/11/2015 08/10/2014, 07/22, 09/14/2012 Fall Risk Assessment 09/22/2020 09/23/2019 eGFR 10/22/2023 10/21/2022 Influenza Vaccine (Season Ended) 2024 01/21/20 19, 01/06/2018 Colon Cancer Screening-CT Colonography Discontinued 08/08/2015 Colon Cancer Screening-Colonoscopy Discontinued 2015 Colon Cancer Screening-DNA Stool Discontinued 08/08/19 16 Colon Cancer Screening-FIT Discontinued 08/08/2015 Colon Cancer Screening-FOBT Discontinued 08/08/2015 Colon Cancer Screening-Sigmoidoscopy Discontinued 07/22 Colorectal Cancer Screening Discontinued Procedures Procedure Name Priority Date/Time Associated Diagnosis Comments BASIC METABOLIC PANEL Routine 10/21/2022 7:44 AM CDT Flank pain COLONOSCOPY REPORT 08/08/2015 PLASMA LIPID PANEL Routine 08/10/2014 4: 58 AM CDT from Last 3 Months or Most Recently Relevant to Health Maintenance Results * (ABNORMAL) Basic metabolic panel (10/21/2022 7:44 AM CDT) Glucose 147(H) 70 - 99 mg/dL [facility] - 01 BUN 33(H) 8 - 27 mg/dL [facility] - 01 Creatinine, Serum 1.09(H) 0.57 - 1.00 mg/dL [facility] - 01 eGFR 53(L) >59 mL/min/1.7 3 [facility] - 01 BUN/creat ratio 30(H) 12 - 28 [facility] - 01 Sodium 141 134 - 144 mmol/L [facility] - 01 Potassium, sr 4.7 3.5 - 5.2 mmol/L [facility] - 01 Chloride 102 96 - 106 mmol/L [facility] - 01 CO2 21 20 - 29 mmol/L [facility] - 01 Calcium 9.9 8.7 - 10.3 mg/dL [facility] - 01 Blood 10/21/2022 7:44 AM CDT 10/21/2022 Comment:KITTY Narrative [facility] - 10/22/2022 7:10 AM CDT Performed at: [address] [id number] Community Development Manager: Reynaldo Hayden PhD, Phone: [phone] us Nereyda Newman MD LAB BLOOD ORDERABLES Final Resul t [facility] - 01 * COLONOSCOPY REPORT (08/08/2015) Anatomical Region Laterality Modality Other Narrative 08/08/2015 Ordered by an unspecified provider. Historical Provider GI PROCEDURE ORDERABLES F inal Result * (ABNORMAL) Plasma lipid panel (08/10/2014 4:58 AM CDT) Pathologist [facility] Cholesterol 138 100 - 200 mg/dl HISTORICAL RESULTS Triglycerides 252(H) 10 - 150 mg/dl HISTORICAL RESULTS HDL 37(L) 40 - 59 mg/dl HISTORICAL RESULTS LDL 51(L) 60 - 129 mg/dl HISTORICAL RESULTS Plasma 08/10/2014 4:58 AM CDT Glenis Snyder MD LAB BLOOD ORDERABLES Fi nal Result HISTORICAL RESULTS from Last 3 Months or Most Recently Relevant to Health Maintenance Insurance MEDICARE [facility] Address: [id number] [place] [address] [facility] MEDICARE [employer] Address: [address] [address] [place] MEDICARE [place] Care Teams Paraprofessional Aide Teacher Relationship Specialty Start Date End Date Romero Herring MD PCP - General 05/07/16 Romero Herring MD 05/07/16
--- OUTSIDE RECORDS SUMMARY | 2024-10-01 11:17 | XMS_ITS | Referral Summary ---
Author Organization [facility] Address [address] [place] [address] Care Team Providers Care Cabin Worker Name Role Phone Romero Herring MD Primary Care Provider [phone] Romero Herring MD Unavailable [phone] Allergies Active Allergy Reactions Criticality Noted Date [...] mcg tablet Take 100 mcg by mouth casework specialist before breakfast Active metoprolol XL (TOPROL-XL) 25 [...] (09/09/2019): Added automatically from request for surgery [id number] Social History Tobacco Use Types Packs/Day Years Used Date Smoking Tobacco: Never Smokeless Tobacco: Never Alcohol Use Standard Drinks/Week Comments No 0 (1 standard drink = 0.6 oz pur e alcohol) Comments Unknown Sex and Gender Information Value Date Recorded Sex Assigned at Not on file Legal Sex Female 1:44 PM CROSSCUTTER Gender Identity Not on file Sexual Orientation Not on file Occupation Industry Job Start Date Job End Date Retired Not on file Not on file Not on file Last Filed Vital Signs Vital Sign Reading Time Taken Comments Blood Pressure 163/83 02/28/2020 7:47 AM CROSSCUTTER Pulse 98 02/28/2020 7:47 AM CROSSCUTTER Temperature 36.1 C (96.9 F) 11/07/2020 9:40 AM CDT Respiratory Rate 16 09/23/2019 12:05 PM CDT Oxygen Saturation 94% 09/23/2019 12:05 PM CDT Inhaled Oxygen Concentration - - Weight 75.4 kg (166 lb 3.2 oz) 02/28/2020 7:47 A M CROSSCUTTER Height 162.6 cm (5' 4) 02/28/2020 7:47 AM CROSSCUTTER Body Mass Index 28.53 02/28/2020 7:47 AM CROSSCUTTER Plan of Treatment Not on file Procedures Procedure Name Priority Date/Time Associated Diagnosis Comments BASIC METABOLIC PANEL Routine 10/21/2022 7:44 AM CDT Flank pain COLONOSCOPY REPORT 08/08/2015 PLASMA LIPID PANEL Routine 08/10/2014 4: 58 AM CDT from Last 3 Months or Most Recently Relevant to Health Maintenance Results * (ABNORMAL) Basic metabolic panel (10/21/2022 7:44 AM CDT) Pathologist [facility] Glucose 147(H) 70 - 99 mg/dL [facility] [...] Blood 10/21/2022 7:44 AM CDT 10/21/2022 Comment:KITTY Llamas [facility] - 10/22/2022 7:10 AM CDT Performed at: [address] [place] [id number] Wellness Rn: Reynaldo Hayden PhD, Phone: [phone] us Nereyda Newman MD LAB BLOOD ORDERABLES Final Resul t Performing Organization Address City/[facility]/ZIP Co de Phone Number [facility] - 01 * COLONOSCOPY REPORT (08/08/2015) Anatomical Region Laterality Modality Other Narrative 08/08/2015 Ordered by an unspecified provider. us Historical Provider GI PROCEDURE ORDERABLES F inal Result * (ABNORMAL) Plasma lipid panel (08/10/2014 4:58 AM CDT) Cholesterol 138 100 - 200 mg/dl HISTORICAL RESULTS Triglycerides 252(H) 10 - 150 mg/dl HISTORICAL RESULTS HDL 37(L) 40 - 59 mg/dl HISTORICAL RESULTS LDL 51(L) 60 - 129 mg/dl HISTORICAL RESULTS Plasma 08/10/2014 4:58 AM CDT Glenis Snyder MD LAB BLOOD ORDERABLES Fi nal Result Performing Organization Address [facility] Co de Phone Number HISTORICAL RESULTS from Last 3 Months or Most Recently Relevant to Health Maintenance Insurance MEDICARE [facility] MEDICARE [place] [facility] [place] MEDICARE [facility] Care Teams Cabin Worker Relationship Specialty Start Date End Date Romero Herring MD PCP - General 05/07/16 Romero Herring MD 05/07/16
--- OUTSIDE RECORDS SUMMARY | 2024-10-01 11:17 | XMS_ITS | Encounter Summary ---
Author Organization [facility] Address [address] [place] [address] Phone Care Team Providers Care Call Worker Person Name Role Phone Romero Herring MD Primary Care Provider [phone] Romero Herring MD Unavailable [phone] Encounter Details Date Type Department Care Team (Latest Contact Info) Description 12/08/2019 Orders Only [facility] Scanning, Provider Social History Tobacco Use Types Packs/Day Years Used Date Smoking Tobacco: Never Smokeless Tobacco: Never Alcohol Use Standard Drinks/Week Comments No 0 (1 standard drink = 0.6 oz pur e alcohol) Comments Unknown Sex and Gender Information Value Date Recorded Sex Assigned at Not on file Legal Sex Female 1:44 PM TRAFFIC REPRESENTATIVE Gender Identity Not on file Sexual Orientation Not on file documented as of this encounter Plan of Treatment Not on file documented as of this encounter Procedures Procedure Name Priority Date/Time Associated Diagnosis Comments SCAN - LABS 12/08/2019 documented in this encounter Results * SCAN - LABS (12/08/2019) us Provider Scanning Final Result documented in this encounter Visit Diagnoses Not on filedocumented in this encounter Care Teams Call Worker Person Relationship Specialty Start Date End Date Romero Herring MD PCP - General 05/07/16 Romero Herring MD 05/07/16 documented as of this encounter
--- OUTSIDE RECORDS SUMMARY | 2024-10-01 11:17 | XMS_ITS | Encounter Summary ---
Author Organization [facility] Address [address] [place] [address] Phone Care Team Providers Care Bilingual Inside Sales Representative Name Role Phone Romero Herring MD Primary Care Provider [phone] Romero Herring MD Unavailable [phone] Encounter Details Date Type Department Care Team (Latest Contact Info) Description 12/15/2019 Orders Only [facility] Scanning, Provider Social History Tobacco Use Types Packs/Day Years Used Date Smoking Tobacco: Never Smokeless Tobacco: Never Alcohol Use Standard Drinks/Week Comments No 0 (1 standard drink = 0.6 oz pur e alcohol) Comments Unknown Sex and Gender Information Value Date Recorded Sex Assigned at Not on file Legal Sex Female 1:44 PM MALLET CUTTER Gender Identity Not on file Sexual Orientation Not on file documented as of this encounter Plan of Treatment Not on file documented as of this encounter Procedures Procedure Name Priority Date/Time Associated Diagnosis Comments SCAN - RADIOLOGY/IMAGING 12/15/2019 documented in this encounter Results * SCAN - RADIOLOGY/IMAGING (12/15/2019) Anatomical Region Laterality Modality Other us Provider Scanning Final Result documented in this encounter Visit Diagnoses Not on filedocumented in this encounter Care Teams Bilingual Inside Sales Representative Relationship Specialty Start Date End Date Romero Herring MD PCP - General 05/07/16 Romero Herring MD 05/07/16 documented as of this encounter
--- OUTSIDE RECORDS SUMMARY | 2024-10-01 11:17 | XMS_ITS | Continuity of Care Document ---
Author Organization [facility] Address [address] [facility] [address] [place] [address] Phone Care Team Providers Care Shake Sawyer Name Role Phone Jakob Roman Unavailable Unavailable Advance Directives Directive Yes / No Effective Date File Name No Information Encounters Encounter Description Practice Location Reason(s) For Visit Diagnoses Date Provider Providers Copied on Encounter [facility], [address], [place], [place], [id number], [place] tel:[phone] [facility] No Information [address] Jakob. [address] , [address], [place], [address], [place]. tel:[phone] Family History Family Member Type Diagnosis Age At Onset No Information Payers Payer name Insurance type Covered green party ID Authoriza tion(s) No Information Social History Type Description Quantity Date Captured Comments Sex Female Smoking Status No Information Chief Complaint And Reason For Visit No Information Reason For Referral Reason For Referral No Information History Of Present Illness Encounter Date Complaint History Of Prese nt Illness No Information Functional Status Date Functional Assessmen t No Information Instructions Date Instruction Additional Infor mation No Information Assessments Type Assessment Date No Information Patient Care Teams Name Effective Dates (start - stop) Status Members No Information
[2024-10-01 11:27] VITALS: BP 125/68; PULSE 81; RESP 16; TEMP 36.8; O2SAT 97
[2024-10-01 11:43] LABS: Hematocrit 38.8 % (37.0-47.0); Hemoglobin 12.3 g/dL (12.0-15.0); Immature Granulocyte Percent A 0.3 % (0-0.5); Lymphocytes Absolute Auto 2.93 K/mm3 (0.9-3.2); Mean Corpuscular HGB Conc 31.7 g/dl (32-36); Mean Corpuscular Hemoglobin 28.7 pg (26-34); Mean Corpuscular Volume 90.7 fl (80-100); Nucleated Red Blood Cells Absolute Auto 0.000 K/mm3 (0.0-0.012); Nucleated Red Blood Cells Perc 0.0 % (0.0-0.2); Platelet Count Result 268 k/mm3 (150-375); Red Blood Count 4.28 M/mm3 (4.2-5.4); White Blood Count 8.9 K/mm3 (4.5-10.0)
[2024-10-01 11:56] LABS: Alanine Aminotransferase 24 U/L (6-35); Albumin Level 4.4 g/dL (3.5-5.1); Alkaline Phosphatase 51 U/L (38-126); Anion Gap 10 mmol/L (4-12); Aspartate Amino Transferase 32 U/L (14-36); Bilirubin,Total 0.5 mg/dL (0.2-1.3); Blood Urea Nitrogen 27 mg/dL (7-17); Calcium 9.9 mg/dL (8.4-10.2); Carbon Dioxide 24 mmol/L (22-30); Chloride 104 mmol/L (98-107); Estimated CRCL calculation 40 ml/min; Estimated Glomerular Filt Rate 54; Glucose 136 mg/dL (65-110); Lipase 557 U/L (23-300); Potassium 4.4 mmol/L (3.4-5.0); Sodium 138 mmol/L (137-145); Total Protein 7.6 g/dL (6.3-8.2)
[2024-10-01 11:58] LABS: INR 0.9; Prothrombin Time 12.4 Seconds (11.1-14.7)
[2024-10-01 12:00] LABS: Partial Thromboplastin Time 26.6 Seconds (22.3-36.8)
[2024-10-01 12:01] LABS: Troponin I 0.013 ng/mL (0.000-0.034)
--- NOTE | 2024-10-01 12:54 | ECG_ITS ---
Test Date: 2024-10-01 14:40:28 Measurements Intervals [place] Rate: 79 P: 60 NC: 226 QRS: -79 QRSD: 154 T: 24 QT: 422 QTc: 486 Interpretive Statements SINUS RHYTHM WITH FIRST DEGREE AV BLOCK RIGHT BUNDLE BRANCH BLOCK [ INFERIOR MYOCARDIAL INFARCTION , PROBABLY OLD Electronically Signed On 10-02-2024 08:06:58 CDT by Dwayne Kulkarni D.O
--- OUTSIDE RECORDS SUMMARY | 2024-10-01 13:57 | XMS_ITS | Clinical Summary ---
Author Organization [facility] Address [address] [place] [address] Care Team Providers Care Echocardiograph Tech Name Role Phone Romero Herring MD Primary Care Provider [phone] Romero Herring MD Unavailable [phone] Allergies Active Allergy Reactions Criticality Noted Date [...] mcg tablet Take 100 mcg by mouth apparel rental clerk before breakfast Active metoprolol XL (TOPROL-XL) 25 [...] (09/09/2019): Added automatically from request for surgery [id number] Surgical History Surgery Date Site/Laterality Comments OTHER [...] on file Legal Sex Female 1:44 PM CONSUMER INSIGHTS SPECIALIST Gender Identity Not on file Sexual Orientation Not on file Occupation Industry Job Start Date Job End Date Retired Not on file Not on file Not on file Obstetrics History Last Filed Vital Signs Vital Sign Reading Time Taken Comments Blood Pressure 163/83 02/28/2020 7:47 AM CONSUMER INSIGHTS SPECIALIST Pulse 98 02/28/2020 7:47 AM CONSUMER INSIGHTS SPECIALIST Temperature 36.1 C (96.9 F) 11/07/2020 9:40 AM CDT Respiratory Rate 16 09/23/2019 12:05 PM CDT Oxygen Saturation 94% 09/23/2019 12:05 PM CDT Inhaled Oxygen Concentration - - Weight 75.4 kg (166 lb 3.2 oz) 02/28/2020 7:47 A M CONSUMER INSIGHTS SPECIALIST Height 162.6 cm (5' 4) 02/28/2020 7:47 AM CONSUMER INSIGHTS SPECIALIST Body Mass Index 28.53 02/28/2020 7:47 AM CONSUMER INSIGHTS SPECIALIST Plan of Treatment Health Maintenance Due Date [...] 7:10 AM CDT Performed at: [address] [id number] Usability Engineer: Reynaldo Hayden PhD, Phone: [phone] us Nereyda Newman MD LAB BLOOD ORDERABLES Final Resul t [facility] - 01 * COLONOSCOPY REPORT (08/08/2015) Anatomical Region Laterality Modality Other Narrative 08/08/2015 Ordered by an unspecified provider. Historical Provider GI PROCEDURE ORDERABLES F inal Result * (ABNORMAL) Plasma lipid panel (08/10/2014 4:58 AM CDT) Pathologist [facility] Cholesterol 138 100 - 200 mg/dl HISTORICAL RESULTS Triglycerides 252(H) 10 - 150 mg/dl HISTORICAL RESULTS HDL 37(L) 40 - 59 mg/dl HISTORICAL RESULTS LDL 51(L) 60 - 129 mg/dl HISTORICAL RESULTS Plasma 08/10/2014 4:58 AM CDT Glenis Snyder MD LAB BLOOD ORDERABLES Fi nal Result HISTORICAL RESULTS from Last 3 Months or Most Recently Relevant to Health Maintenance Insurance MEDICARE [facility] MEDICARE [place] MEDICARE [place] Care Teams Echocardiograph Tech Relationship Specialty Start Date End Date Romero Herring MD PCP - General 05/07/16 Romero Herring MD 05/07/16
--- OUTSIDE RECORDS SUMMARY | 2024-10-01 13:57 | XMS_ITS | Encounter Summary ---
Author Organization [facility] Address [address] [place] [address] Phone Care Team Providers Care Timber Estimator Name Role Phone Romero Herring MD Primary Care Provider [phone] Romero Herring MD Unavailable [phone] Encounter Details Date Type Department Care Team [...] on file Legal Sex Female 1:44 PM HOSPITALITY TEAM MEMBER Gender Identity Not on file Sexual Orientation [...] on filedocumented in this encounter Care Teams Timber Estimator Relationship Specialty Start Date End Date Romero Herring MD PCP - General 05/07/16 Romero Herring MD 05/07/16 documented as of this encounter
--- OUTSIDE RECORDS SUMMARY | 2024-10-01 13:57 | XMS_ITS | Referral Summary ---
Author Organization [facility] Address [address] [place] [address] Care Team Providers Care Production Control Coordinating Clerk Name Role Phone Romero Herring MD Primary Care Provider [phone] Romero Herring MD Unavailable [phone] Allergies Active Allergy Reactions Criticality Noted Date [...] mcg tablet Take 100 mcg by mouth roll skinner before breakfast Active metoprolol XL (TOPROL-XL) 25 [...] (09/09/2019): Added automatically from request for surgery [id number] Social History Tobacco Use Types Packs/Day Years Used Date Smoking Tobacco: Never Smokeless Tobacco: Never Alcohol Use Standard Drinks/Week Comments No 0 (1 standard drink = 0.6 oz pur e alcohol) Comments Unknown Sex and Gender Information Value Date Recorded Sex Assigned at Not on file Legal Sex Female 1:44 PM CAR RENTAL CLERK Gender Identity Not on file Sexual Orientation Not on file Occupation Industry Job Start Date Job End Date Retired Not on file Not on file Not on file Last Filed Vital Signs Vital Sign Reading Time Taken Comments Blood Pressure 163/83 02/28/2020 7:47 AM CAR RENTAL CLERK Pulse 98 02/28/2020 7:47 AM CAR RENTAL CLERK Temperature 36.1 C (96.9 F) 11/07/2020 9:40 AM CDT Respiratory Rate 16 09/23/2019 12:05 PM CDT Oxygen Saturation 94% 09/23/2019 12:05 PM CDT Inhaled Oxygen Concentration - - Weight 75.4 kg (166 lb 3.2 oz) 02/28/2020 7:47 A M CAR RENTAL CLERK Height 162.6 cm (5' 4) 02/28/2020 7:47 AM CAR RENTAL CLERK Body Mass Index 28.53 02/28/2020 7:47 AM CAR RENTAL CLERK Plan of Treatment Not on file Procedures Procedure Name Priority Date/Time Associated Diagnosis Comments BASIC METABOLIC PANEL Routine 10/21/2022 7:44 AM CDT Flank pain COLONOSCOPY REPORT 08/08/2015 PLASMA LIPID PANEL Routine 08/10/2014 4: 58 AM CDT from Last 3 Months or Most Recently Relevant to Health Maintenance Results * (ABNORMAL) Basic metabolic panel (10/21/2022 7:44 AM CDT) Pathologist [facility] Glucose 147(H) 70 - 99 mg/dL [facility] [...] - 10/22/2022 7:10 AM CDT Performed at: [address] [place] [id number] Mechanical Process Engineer: Reynaldo Hayden PhD, Phone: [phone] us Nereyda Newman MD LAB BLOOD ORDERABLES Final Resul t Performing Organization Address City/[facility]/ZIP Co de Phone Number [facility] - [...] ORDERABLES Fi nal Result Performing Organization Address [facility] Co de Phone Number HISTORICAL RESULTS from Last 3 Months or Most Recently Relevant to Health Maintenance Insurance MEDICARE [facility] MEDICARE [place] [facility] [place] MEDICARE [facility] Care Teams Production Control Coordinating Clerk Relationship Specialty Start Date End Date Romero Herring MD PCP - General 05/07/16 Romero Herring MD 05/07/16
--- OUTSIDE RECORDS SUMMARY | 2024-10-01 13:57 | XMS_ITS | Continuity of Care Document ---
Author Organization [facility] Address [address] [facility] [address] [place] [address] Phone Care Team Providers Care Rod Filler Name Role Phone Jakob Roman Unavailable Unavailable Advance Directives Directive Yes / No Effective Date File Name No Information Encounters Encounter Description Practice Location Reason(s) For Visit Diagnoses Date Provider Providers Copied on Encounter [facility], [address], [place], [place], [id number], [place] tel:[phone] [facility] No Information [address] Jak[address]. [address] , [address], [place], [address], [place]. tel:[phone] Family History Family Member Type Diagnosis Age At Onset No Information Payers Payer name Insurance type Covered libertarian ID Authoriza tion(s) No Information Social History [...]
--- OUTSIDE RECORDS SUMMARY | 2024-10-01 13:57 | XMS_ITS | Encounter Summary ---
Author Organization [facility] Address [address] [place] [address] Phone Care Team Providers Care Codifier Name Role Phone Romero Herring MD Primary Care Provider [phone] Romero Herring MD Unavailable [phone] Encounter Details Date Type Department Care Team [...] on file Legal Sex Female 1:44 PM LUBRICATING MACHINE TENDER Gender Identity Not on file Sexual Orientation [...] on filedocumented in this encounter Care Teams Codifier Relationship Specialty Start Date End Date Romero Herring MD PCP - General 05/07/16 Romero Herring MD 05/07/16 documented as of this encounter
--- OUTSIDE RECORDS SUMMARY | 2024-10-01 13:57 | XMS_ITS ---
Author Organization [facility] Address [address] [place] [address] Care Team Providers Care Cuff Cutter Name Role Phone Romero Herring MD Primary Care Provider [phone] Romero Herring MD Unavailable [phone] Active Problems Problem Noted Date Diagnosed Date [...] (09/09/2019): Added automatically from request for surgery [id number]
[2024-10-01 14:09] VITALS: BP 137/73; PULSE 83; RESP 12; O2SAT 98
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
[2024-10-01 15:21] LABS: NT Pro B Type Natriuretic Pept 82 pg/mL (19.9-100); Troponin I < 0.012 ng/mL (0.000-0.034)
== END 2024-10-01 16:48 | disposition home or self-care (01) ==
PROVIDERS: Emergency Medicine; Emergency Provider Emergency Medicine; PCP Family Medicine
DX: R07.89 Other chest pain (principal); I25.10 Atherosclerotic heart disease of native coronary artery without angina pectoris; I10 Essential (primary) hypertension; E11.9 Type 2 diabetes mellitus without complications; E78.2 Mixed hyperlipidemia; E03.9 Hypothyroidism, unspecified; G47.33 Obstructive sleep apnea (adult) (pediatric); Z95.5 Presence of coronary angioplasty implant and graft; Z85.528 Personal history of other malignant neoplasm of kidney; Z85.51 Personal history of malignant neoplasm of bladder; Z86.73 Personal history of transient ischemic attack (TIA), and cerebral infarction without residual deficits; Z90.710 Acquired absence of both cervix and uterus; Z90.5 Acquired absence of kidney; Z77.22 Contact with and (suspected) exposure to environmental tobacco smoke (acute) (chronic); Z79.4 Long term (current) use of insulin; Z79.84 Long term (current) use of oral hypoglycemic drugs; Z79.82 Long term (current) use of aspirin; Z79.02 Long term (current) use of antithrombotics/antiplatelets; Z79.85 Long-term (current) use of injectable non-insulin antidiabetic drugs; Z79.899 Other long term (current) drug therapy; I44.0 Atrioventricular block, first degree; I45.10 Unspecified right bundle-branch block; R94.31 Abnormal electrocardiogram [ECG] [EKG]
CPT/HCPCS: 36415; 71046; 80053; 82948; 83690; 83880; 84484; 85025; 85380; 85610; 85730; 93005; 99284

== ENCOUNTER 2024-11-01 07:48 | Outpatient (CLI) | payer MEDICARE, OTHER, SELFPAY ==
--- OUTSIDE RECORDS SUMMARY | 2024-11-01 07:52 | XMS_ITS ---
Author Organization [facility] Address [address] [place] [address] Care Team Providers Care Buzzsaw Operator Helper Name Role Phone Romero Herring MD Primary Care Provider [phone] Romero Herring MD Unavailable [phone] Active Problems Problem Noted Date Diagnosed Date [...] (09/09/2019): Added automatically from request for surgery [id number]
--- OUTSIDE RECORDS SUMMARY | 2024-11-01 07:52 | XMS_ITS | Encounter Summary ---
Author Organization [facility] Address [address] [place] [address] Phone Care Team Providers Care Order Clerk Name Role Phone Romero Herring MD Primary Care Provider [phone] Romero Herring MD Unavailable [phone] Encounter Details Date Type Department Care Team [...] on file Legal Sex Female 1:44 PM RN TRANSITIONAL CARE Gender Identity Not on file Sexual Orientation [...] on filedocumented in this encounter Care Teams Order Clerk Relationship Specialty Start Date End Date Romero Herring MD PCP - General 05/07/16 Romero Herring MD 05/07/16 documented as of this encounter
--- OUTSIDE RECORDS SUMMARY | 2024-11-01 07:52 | XMS_ITS | Clinical Summary ---
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 Gender Identity Not on file Sexual Orientation Not on file Occupation Industry Job Start Date Job End Date Retired Not on file Not on file Not on file Obstetrics History Last Filed Vital Signs Vital Sign Reading Time Taken Comments Blood Pressure 163/83 02/28/2020 7:47 AM ORANGE PICKER MACHINE OPERATOR Pulse 98 02/28/2020 7:47 AM ORANGE PICKER 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 Temperature 36.1 C (96.9 F) 11/07/2020 9:40 AM CDT Respiratory Rate 16 09/23/2019 12:05 PM CDT Oxygen Saturation 94% 09/23/2019 12:05 PM CDT Inhaled Oxygen Concentration - - Weight 75.4 kg (166 lb 3.2 oz) 02/28/2020 7:47 A M ORANGE PICKER MACHINE OPERATOR Height 162.6 cm (5' 4) 02/28/2020 7:47 AM ORANGE PICKER MACHINE OPERATOR Body Mass Index 28.53 02/28/2020 7:47 AM ORANGE PICKER MACHINE OPERATOR Plan of Treatment Health Maintenance Due Date [...] 09/22/2020 09/23/2019 eGFR 10/22/2023 10/21/2022 Influenza Vaccine (#1) 2024 01/20/2019, 2017 Colon Cancer Screening-CT Colonography Discontinued 08/08/2015 Colon [...] 7:10 AM CDT Performed at: 01 - [address] [id number] Runner Man: Reynaldo Hayden PhD, Phone: [phone] us Nereyda Newman MD LAB BLOOD ORDERABLES [...] Recently Relevant to Health Maintenance Insurance MEDICARE [facility] Address: [id number] [place] [address] [facility] MEDICARE [employer] MEDICARE [employer] Care Teams Alteration Worker Relationship Specialty Start Date End Date Romero Herring MD PCP - General 05/07/16 Romero Herring MD 05/07/16
--- OUTSIDE RECORDS SUMMARY | 2024-11-01 07:52 | XMS_ITS | Encounter Summary ---
Author Organization [facility] Address [address] [place] [address] Phone Care Team Providers Care Middle School Assistant Principal Name Role Phone Romero Herring MD Primary Care Provider [phone] Romero Herring MD Unavailable [phone] Encounter Details Date Type Department Care Team [...] on file Legal Sex Female 1:44 PM BARIATRIC COORDINATOR Gender Identity Not on file Sexual Orientation [...] on filedocumented in this encounter Care Teams Middle School Assistant Principal Relationship Specialty Start Date End Date Romero Herring MD PCP - General 05/07/16 Romero Herring MD 05/07/16 documented as of this encounter
--- OUTSIDE RECORDS SUMMARY | 2024-11-01 07:52 | XMS_ITS | Continuity of Care Document ---
Author Organization [facility] Address [address] [place] [address] Phone Care Team Providers Care Sales Operations Assistant Name Role Phone Jakob Roman Unavailable Unavailable Advance Directives Directive Yes / No Effective Date File Name No Information Encounters Encounter Description Practice Location Reason(s) For Visit Diagnoses Date Provider Providers Copied on Encounter [facility], [address], [place], [place], [id number], [place] tel:[phone] [facility] No Information [address] , [address], [place], [address], [place]. tel:[phone] Family History Family Member Type Diagnosis Age [...]
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
== END 2024-11-02 06:54 | disposition home or self-care (01) ==
LOC: ANHCSM 07:48
PROVIDERS: PCP Family Medicine; Visit Provider Physician Assistant
DX: G47.33 Obstructive sleep apnea (adult) (pediatric) (principal); Z99.89 Dependence on other enabling machines and devices
CPT/HCPCS: 95811

== ENCOUNTER 2025-01-10 07:47 | Outpatient (CLI) | payer MEDICARE, OTHER, SELFPAY ==
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
[2025-02-03 14:39] VITALS: BMI 32.4
== END 2025-01-11 06:53 | disposition home or self-care (01) ==
LOC: ANHCSM 07:50
PROVIDERS: PCP Family Medicine; Visit Provider Physician Assistant
DX: G47.33 Obstructive sleep apnea (adult) (pediatric) (principal); I10 Essential (primary) hypertension; F39 Unspecified mood [affective] disorder
CPT/HCPCS: 95811